=== PATIENT | male | born 1955 | race African-American/Black ===

== ENCOUNTER 2019-03-04 10:16 | Emergency (ER) | payer BC, SELFPAY ==
[2019-03-04] MEDS ORDERED: DIAZEPAM 2 MG TABLET ONE (10:53)
[2019-03-04] MEDS ORDERED: DEXAMETHASONE 10 MG/ML VIAL ONE (10:53)
[2019-03-04] MEDS ORDERED: IBUPROFEN 400 MG TAB ONE (10:53)
[2019-03-04] MEDS ORDERED: IBUPROFEN 200 MG TAB PO ONE (10:54)
--- NOTE | 2019-03-04 11:26 | EDPHYS ---
Physician Documentation [facility] Name: Jimmy Jack Age: 63 yrs Sex: Male : 1955 Arrival Date: 03/04/2019 Time: :19 Bed 17 Private MD: None, None ED Physician James Ba HPI: 03/04 10:45 This 63 yrs old Black Male presents to ER via Ambulatory with complaints of Pain and pm1 Numbness Of Right Arm. 10:45 The patient or guardian complains of pain, that is acute. The complaints affect the pm1 right trapezius and right arm. Context: The problem was sustained at home, resulted from likely for lifting heavy objects. Onset: The symptoms/episode began/occurred yesterday, morning around 0830. Treatment prior to arrival includes: no previous treatment. Modifying factors: The symptoms are alleviated by nothing. the symptoms are aggravated by moving right arm. Associated signs and symptoms: Pertinent negatives: decreased range of motion, deformity, fever, vomiting, weakness. Severity of symptoms: in the emergency department the symptoms have improved. The patient has not experienced similar symptoms in the past. The patient has not recently seen a physician. Historical: - Allergies: 10:26 No Known Allergies; ss - Home Meds: 10:26 None [Active]; ss - PMHx: 10:26 None; ss - PSHx: 10:26 None; ss - Immunization history:: Adult Immunizations up to date. - Social history:: Smoking status: Patient/guardian denies using tobacco. - Ebola Screening: : Patient denies exposure to infectious person Patient denies travel to an Ebola-affected area in the 21 days before illness onset. ROS: 10:44 Constitutional: Negative for fever, chills, and weight loss, Eyes: Negative for injury, pm1 pain, redness, and discharge, ENT: Negative for injury, pain, and discharge. 10:44 Cardiovascular: Negative for chest pain, palpitations, and edema, Respiratory: Negative for shortness of breath, cough, wheezing, and pleuritic chest pain, Abdomen/GI: Negative for abdominal pain, nausea, vomiting, diarrhea, and constipation, Back: Negative for injury and pain, : Negative for injury, bleeding, discharge, and swelling, MS/Extremity: Negative for injury and deformity, Skin: Negative for injury, rash, and discoloration. 10:44 Neck: Positive for tenderness, of the right trapezius, Negative for stiffness, swelling, bony tenderness. 10:44 Neuro: Positive for pain and numbness to right arm, Negative for weakness. Exam: 10:44 Constitutional: This is a well developed, well nourished patient who is awake, alert, pm1 and in no acute distress. Head/Face: Normocephalic, atraumatic. Eyes: Pupils equal round and reactive to light, extra-ocular motions intact. Lids and lashes normal. Conjunctiva and sclera are non-icteric and not injected. Cornea within normal limits. Periorbital areas with no swelling, redness, or edema. ENT: Nares patent. No nasal discharge, no septal abnormalities noted. Tympanic membranes are normal and external auditory canals are clear. Oropharynx with no redness, swelling, or masses, exudates, or evidence of obstruction, uvula midline. Mucous membranes moist. Chest/axilla: Normal chest wall appearance and motion. Nontender with no deformity. No lesions are appreciated. 10:44 Cardiovascular: Regular rate and rhythm with a normal S1 and S2. No gallops, murmurs, or rubs. Normal PMI, no JVD. No pulse deficits. Respiratory: Lungs have equal breath sounds bilaterally, clear to auscultation and percussion. No rales, rhonchi or wheezes noted. No increased work of breathing, no retractions or nasal flaring. Abdomen/GI: Soft, non-tender, with normal bowel sounds. No distension or tympany. No guarding or rebound. No evidence of tenderness throughout. 10:44 Skin: Warm, dry with normal turgor. Normal color with no rashes, no lesions, and no evidence of cellulitis. MS/ Extremity: Pulses equal, no cyanosis. Neurovascular intact. Full, normal range of motion. 10:44 Neck: External neck: tenderness, of the right trapezius, C-spine: vertebral tenderness, is not appreciated. 10:44 Back: normal spinal alignment noted, vertebral tenderness, is not appreciated, muscle spasm, is appreciated in the right trapezius and right scapular area. 10:44 Neuro: Orientation: is normal, Motor: is normal, moves all fours. Vital Signs: 10:26 BP 115 / 77; Pulse 68; Resp 16; Temp 98.3(TE); Pulse Ox 100% on R/A; Weight 65.77 kg; ss Height 5 ft. 10 in. (177.80 cm); Pain 7/10; 10:26 Body Mass Index 20.81 (65.77 kg, 177.80 cm) ss MDM: 10:30 Patient medically screened. pm1 10:44 Data reviewed: vital signs. Data interpreted: Pulse oximetry: on room air is 100 %. pm1 Interpretation: normal. 10:44 ED course: Discussed with the patient that he would need an outpatient MRI to further pm1 diagnosis his condition. Patient without any trauma. 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 Possible cause for right arm pain and numbness. 11:22 Counseling: I had a detailed discussion with the patient and/or guardian regarding: the pm1 historical points, exam findings, and any diagnostic results supporting the discharge/admit diagnosis, the need for outpatient follow up, a family practitioner, a neurosurgeon, Outpatient MRI, to return to the emergency department if symptoms worsen or persist or if there are any questions or concerns that arise at home. Administered Medications: 10:48 Drug: Decadron 10 mg Route: IM; Site: right deltoid; tw2 11:30 Follow up: Response: No adverse reaction tw2 10:48 Drug: Ibuprofen 600 mg Route: PO; tw2 11:30 Follow up: Response: No adverse reaction; Pain is decreased tw2 10:48 Drug: Valium 2 mg Route: PO; tw2 11:30 Follow up: Response: No adverse reaction tw2 Disposition: 16:04 Co-signature as Attending Physician, James Ba MD. rn Disposition: 03/04/19 11:25 Discharged to Home. Impression: Strain of muscle, fascia and tendon at neck level, Strain of muscle and tendon of back wall of thorax. - Condition is Stable. - Discharge Instructions: Cervical Radiculopathy, Muscle Strain. - Prescriptions for Valium 2 mg Oral Tablet - take 1 tablet by ORAL route every 8 hours As needed; 20 tablet. Diclofenac Sodium 75 mg Oral Tablet Sustained Release - take 1 tablet by ORAL route 2 times per day; 30 tablet. Medrol (Kraig) 4 mg Oral Tablets, Dose Pack - take 1 tablet by ORAL route as directed - follow package instructions; 1 packet. - Medication Reconciliation Form, Thank You Letter, Antibiotic Education, Prescription Opioid Use, Work release form form. - Follow up: Emergency Department; When: As needed; Reason: Worsening of condition. Follow up: Private Physician; When: 2 - 3 days; Reason: Recheck today's complaints, Continuance of care, Re-evaluation by your physician. - Problem is new. - Symptoms have improved. Signatures: James Ba MD MD rn Smirch, Shelby, RN RN ss Marinas, Patrick, NP METEOROLOGICAL OBSERVER pm1 Evelyn Rodarte RN RN tw2 Corrections: (The following items were deleted from the chart) 11:55 11:25 03/04/2019 11:25 Discharged to Home. Impression: Strain of muscle, fascia and tw2 tendon at neck level; Strain of muscle and tendon of back wall of thorax. Condition is Stable. Forms are Work release form, Medication Reconciliation Form, Thank You Letter, Antibiotic Education, Prescription Opioid Use. Follow up: Emergency Department; When: As needed; Reason: Worsening of condition. Follow up: Private Physician; When: 2 - 3 days; Reason: Recheck today's complaints, Continuance of care, Re-evaluation by your physician. Problem is new. Symptoms have improved. pm1
--- NOTE | 2019-03-04 11:26 | ER ---
Nurse's Notes [facility] Name: Jimmy Jack Age: 63 yrs Sex: Male : 1955 Arrival Date: 03/04/2019 Time: :19 Bed 17 Private MD: None, None Diagnosis: Strain of muscle, fascia and tendon at neck level;Strain of muscle and tendon of back wall of thorax Presentation: 03/04 10:25 Presenting complaint: Patient states: Pain to R shoulder/ R upper arm that began ss yesterday 30 with intermittent tingling to R arm. Transition of care: patient was not received from another setting of care. Onset of symptoms was March 03, 2019 at 08:30. Risk Assessment: Do you want to hurt yourself or someone else? Patient reports no desire to harm self or others. Initial Sepsis Screen: Does the patient meet any 2 criteria? No. Patient's initial sepsis screen is negative. Does the patient have a suspected source of infection? No. Patient's initial sepsis screen is negative. Care prior to arrival: None. 10:25 Method Of Arrival: Ambulatory ss 10:25 Acuity: NATHAN 3 ss Historical: - Allergies: 10:26 No Known Allergies; ss - Home Meds: 10:26 None [Active]; ss - PMHx: 10:26 None; ss - PSHx: 10:26 None; ss - Immunization history:: Adult Immunizations up to date. - Social history:: Smoking status: Patient/guardian denies using tobacco. - Ebola Screening: : Patient denies exposure to infectious person Patient denies travel to an Ebola-affected area in the 21 days before illness onset. Screenin:32 Abuse screen: Denies threats or abuse. Nutritional screening: No deficits noted. tw2 Tuberculosis screening: No symptoms or risk factors identified. Fall Risk None identified. Assessment: 10:32 General: Appears in no apparent distress. slender, well groomed, Behavior is calm, tw2 cooperative, appropriate for age. Pain: Complains of pain in right arm. Neuro: Level of Consciousness is awake, alert, obeys commands, Oriented to person, place, time, situation. Cardiovascular: Heart tones S1 S2 Patient's skin is warm and dry. Respiratory: Airway is patent Respiratory effort is even, unlabored, Respiratory pattern is regular, symmetrical, Breath sounds are clear bilaterally. GI: No signs and/or symptoms were reported involving the gastrointestinal system. Abdomen is flat. : No signs and/or symptoms were reported regarding the genitourinary system. EENT: No signs and/or symptoms were reported regarding the EENT system. Derm: No signs and/or symptoms reported regarding the dermatologic system. Musculoskeletal: Reports pain in right arm. 11:54 Reassessment: Patient appears in no apparent distress at this time. No changes from tw2 previously documented assessment. Patient and/or family updated on plan of care and expected duration. Pain level reassessed. Patient is alert, oriented x 3, equal unlabored respirations, skin warm/dry/pink. Vital Signs: 10:26 BP 115 / 77; Pulse 68; Resp 16; Temp 98.3(TE); Pulse Ox 100% on R/A; Weight 65.77 kg; ss Height 5 ft. 10 in. (177.80 cm); Pain 7/10; 10:26 Body Mass Index 20.81 (65.77 kg, 177.80 cm) ss ED Course: 10:19 Patient arrived in ED. mr 10:19 None, None is Private Physician. mr 10:26 Triage completed. ss 10:26 Arm band placed on left wrist. ss 10:29 Alexi Wright NP is PHCP. pm1 10:29 James Ba MD is Attending Physician. pm1 10:32 Evelyn Rodarte RN is Primary Nurse. tw2 10:32 Bed in low position. Call light in reach. tw2 11:54 No provider procedures requiring assistance completed. Patient did not have IV access tw2 during this emergency room visit. Administered Medications: 10:48 Drug: Decadron 10 mg Route: IM; Site: right deltoid; tw2 11:30 Follow up: Response: No adverse reaction tw2 10:48 Drug: Ibuprofen 600 mg Route: PO; tw2 11:30 Follow up: Response: No adverse reaction; Pain is decreased tw2 10:48 Drug: Valium 2 mg Route: PO; tw2 11:30 Follow up: Response: No adverse reaction tw2 Outcome: 11:25 Discharge ordered by . pm1 11:54 Discharged to home ambulatory. tw2 11:54 Condition: stable 11:54 Discharge instructions given to patient, Instructed on discharge instructions, follow up and referral plans. no drinking with medication, no driving heavy equipment, medication usage, Demonstrated understanding of instructions, follow-up care, medications, Prescriptions given X 3. 11:55 Patient left the ED. tw2 Signatures: Tawanna Zapata Shelby, RN RN ss Alexi Wright, JAMARCUS RELATIONS MGR pm1 Evelyn Rodarte RN RN tw2
[2019-03-04 15:28] VITALS: BP 115/77; TEMP 98.3; O2SAT 100
== END 2019-03-04 11:55 | disposition home or self-care (01) ==
LOC: ER 10:16
DX: S16.1XXA Strain of muscle, fascia and tendon at neck level, initial encounter (principal); S29.012A Strain of muscle and tendon of back wall of thorax, initial encounter; X50.0XXA Overexertion from strenuous movement or load, initial encounter; Y93.89 Activity, other specified; Y92.009 Unspecified place in unspecified non-institutional (private) residence as the place of occurrence of the external cause
CPT/HCPCS: 96372; 99283; J1100

== ENCOUNTER 2022-05-02 11:26 | Emergency (ER) | payer MEDICARE ==
[2022-05-02 12:21] LABS: Hematocrit 38.3 % (39.6-49.0); Lymphocytes % 26.9 % (15.3-44.8); MCV 89.7 fL (80-100); RBC Red Blood Cell Count 4.27 M/uL (4.33-5.43)
[2022-05-02 12:25] LABS: Potassium 3.5 mmol/L (3.5-5.1); Troponin High Sensitivity 4.3 pg/mL (<58.9)
--- NOTE | 2022-05-02 12:58 | RAD REPORT ---
EXAM DESCRIPTION: RAD - Chest Single View - 05/02/2022 12:47 pm CLINICAL HISTORY: CHEST PAIN COMPARISON: Chest Single View dated 08/03/2021; Chest Pa And Lat (2 Views) dated 05/03/2021; Chest Pa And Lat (2 Views) dated 07/14/2020; CHEST SINGLE VIEW dated 10/28/2014; Lung Cancer Screening CT W/O d ated 04/11/2022 FINDINGS: Lines: None. Lungs: Advanced emphysema. Scarring in the right lung apex. Pleural: No significant pleural effusions or pneumothorax. Cardiac: The heart size is within normal limits. Bones: No acute fractures. Other: IMPRESSION: Advanced emphysema without superimposed acute process.
--- NOTE | 2022-05-02 13:50 | EDPHYS ---
Physician Documentation [facility] Name: Jimmy Jack Age: 66 yrs Sex: Male : 1955 Arrival Date: 05/02/2022 Time: 11:37 Bed 4 Private MD: ED Physician Derik Solitario HPI: 05/02 13:49 This 66 yrs old Black Male presents to ER via EMS with complaints of chest pain. ms3 13:49 The patient or guardian reports chest pain that is located primarily in the left chest. ms3 13:49 Onset: 8 hour(s) ago. The pain does not radiate. Associated signs and symptoms: ms3 Pertinent negatives: abdominal pain, diaphoresis, nausea, near syncope, syncope, vomiting. The chest pain is described as aching. Duration: The patient or guardian reports a single episode. Modifying factors: The symptoms are alleviated by nothing. the symptoms are aggravated by nothing. EMS care prior to arrival includes: aspirin, nitroglycerin. 13:49 The chest pain is described as CP resolved in the ED. ms3 Historical: - PMHx: 14:16 COPD; GERD; Kidney stone; kr3 - Immunization history:: Adult Immunizations up to date, Client reports receiving the 2nd dose of the Covid vaccine. - Social history:: Smoking status: Patient reports the use of cigarette tobacco products, smokes one-half pack cigarettes per day. ROS: 13:49 Constitutional: Negative for fever, and chills. Neck: Negative for injury, pain, and ms3 swelling, Cardiovascular: Negative for chest pain, and palpitations. Respiratory: Negative for shortness of breath, cough, wheezing, and pleuritic chest pain, Abdomen/GI: Negative for abdominal pain, nausea, vomiting, diarrhea, and constipation, MS/Extremity: Negative for injury and deformity, Skin: Negative for injury, rash, and discoloration, Neuro: Negative for headache, weakness, numbness, tingling. Psych: Negative for depression, anxiety, suicide ideation, homicidal ideation, and hallucinations. 13:49 All other systems are negative. ms3 Exam: 11:36 ECG was reviewed by the Attending Physician. ms3 13:49 Constitutional: This is a well developed, well nourished patient who is awake, alert, ms3 and in no acute distress. Head/Face: Normocephalic, atraumatic. Eyes: Pupils equal round and reactive to light, extra-ocular motions intact. Lids and lashes normal. Conjunctiva and sclera are non-icteric and not injected. Periorbital areas with no swelling, redness, or edema. Neck: Trachea midline, no cervical lymphadenopathy. Supple, full range of motion without nuchal rigidity, or vertebral point tenderness. No Meningismus. Chest/axilla: Normal chest wall appearance and motion. Nontender with no deformity. Cardiovascular: Regular rate and rhythm with a normal S1 and S2. No gallops, murmurs, or rubs. Normal PMI, no JVD. No pulse deficits. Respiratory: Lungs have equal breath sounds bilaterally, clear to auscultation and percussion. No rales, rhonchi or wheezes noted. No increased work of breathing, no retractions or nasal flaring. Abdomen/GI: Soft, non-tender, with normal bowel sounds. No distension or tympany. No guarding or rebound. No evidence of tenderness throughout. Skin: Warm, dry with normal turgor. Normal color with no rashes, no lesions, and no evidence of cellulitis. Psych: Awake, alert, with orientation to person, place and time. Behavior, mood, and affect are within normal limits. Vital Signs: 11:30 BP 119 / 73; Pulse 75; Resp 16; Temp 98.2; Pulse Ox 99% on R/A; kr3 14:00 BP 127 / 82; Pulse 94; Resp 16; Pulse Ox 98% on R/A; kr3 MDM: 11:45 Patient medically screened. ms3 13:49 Differential diagnosis: abnormal EKG, acute myocardial infarction, coronary artery ms3 disease chest wall pain, pneumonia, pneumothorax. HEART Score: History: Slightly Suspicious (0), ECG: Normal (0), Age: > or = 65 years (2), Risk Factors: No Risk Factors Known (0), Troponin: < or = 1 x Normal Limit (0), Total Score = 2. The patient was not given aspirin in the Emergency Department. Administered by EMS. Data reviewed: vital signs, nurses notes, lab test result(s), EKG, radiologic studies, and as a result, I will discharge patient. Data interpreted: alarm security or surveillance monitor: rate is 85 beats/min, rhythm is normal sinus rhythm, with no ectopy, Interpretation: normal rate, normal rhythm, Pulse oximetry: on room air is 98 %. Interpretation: normal. Counseling: I had a detailed discussion with the patient and/or guardian regarding: the historical points, exam findings, and any diagnostic results supporting the discharge/admit diagnosis, lab results, radiology results, the need for outpatient follow up, to return to the emergency department if symptoms worsen or persist or if there are any questions or concerns that arise at home. Refusal of service: The patient/guardian displays adequate decision making capability and despite a detailed discussion of alternatives, benefits, risks, and consequences refuses: Admission to the hospital for further work-up and treatment. ED course: Patient is improved, in NAD, non-toxic appearing, ambulatory in ED, speaking full sentences.. 05/02 11:44 Order name: Basic Metabolic Panel; Complete Time: 13:10 ms3 05/02 11:44 Order name: CBC with Diff; Complete Time: 13:10 ms3 05/02 11:44 Order name: Troponin HS; Complete Time: 13:10 ms3 05/02 11:44 Order name: XRAY Chest (1 view); Complete Time: 13:10 ms3 05/02 11:44 Order name: EKG; Complete Time: 11:44 ms3 05/02 11:44 Order name: Cardiac monitoring; Complete Time: 11:50 ms3 05/02 11:44 Order name: EKG - Nurse/Tech; Complete Time: 11:50 ms3 05/02 11:44 Order name: IV Saline Lock; Complete Time: 11:50 ms3 05/02 11:44 Order name: Labs collected and sent; Complete Time: 11:50 ms3 05/02 11:44 Order name: O2 Per Protocol; Complete Time: 11:50 ms3 05/02 11:44 Order name: O2 Sat Monitoring; Complete Time: 11:50 ms3 EC:36 Rate is 74 beats/min. Rhythm is regular. QRS [place] is Normal. Right axis deviation ms3 noted. UT interval is normal. Clinical impression: NSR w/ Non-specific ST/T Changes. Interpreted by me. Reviewed by me. Administered Medications: No medications were administered Disposition Summary: 05/02/22 13:49 Discharge Ordered Location: Home ms3 Condition: Stable ms3 Diagnosis - Chest pain, unspecified ms3 - Anemia, unspecified ms3 - COPD/ Chronic obstructive pulmonary disease, unspecified ms3 Followup: ms3 - With: Scottie Sifuentes MD - When: 1 - 2 days - Reason: Re-evaluation by your physician Discharge Instructions: - Discharge Summary Sheet ms3 - Nonspecific Chest Pain, Adult ms3 Forms: - Medication Reconciliation Form ms3 - Thank You Letter ms3 - Antibiotic Education ms3 - Prescription Opioid Use ms3 Signatures: Dispatcher [employer] EDDerik Torres DO DO ms3 Aida Arias, RN RN kr3
--- NOTE | 2022-05-02 13:50 | ER ---
Nurse's Notes [facility] Name: Jimmy Jack Age: 66 yrs Sex: Male : 1955 Arrival Date: 05/02/2022 Time: 11:37 Bed 4 Private MD: Diagnosis: Chest pain, unspecified;Anemia, unspecified;COPD/ Chronic obstructive pulmonary disease, unspecified Presentation: 05/02 11:30 Chief complaint: EMS states: chest discomfort 04/22, 324 asprin, 1 nitro, hx of COPD. kr3 11:30 Coronavirus screen: Vaccine status: Patient reports receiving the 2nd dose of the covid kr3 vaccine. Client denies travel out of the [place] in the last 14 days. Ebola Screen: Patient denies travel to an Ebola-affected area in the 21 days before illness onset. Initial Sepsis Screen: Does the patient meet any 2 criteria? No. Patient's initial sepsis screen is negative. Does the patient have a suspected source of infection? No. Patient's initial sepsis screen is negative. Risk Assessment: Do you want to hurt yourself or someone else? Patient reports no desire to harm self or others. Onset of symptoms was May 02, 2022. 11:30 Method Of Arrival: EMS: [facility] kr3 11:30 Acuity: NATHAN 3 kr3 Triage Assessment: 11:44 General: Appears in no apparent distress. comfortable, Behavior is calm, cooperative, kr3 appropriate for age. Pain: Denies pain. 11:44 Cardiovascular:. kr3 11:44 Pain: Denies pain. kr3 Historical: - PMHx: 14:16 COPD; GERD; Kidney stone; kr3 - Immunization history:: Adult Immunizations up to date, Client reports receiving the 2nd dose of the Covid vaccine. - Social history:: Smoking status: Patient reports the use of cigarette tobacco products, smokes one-half pack cigarettes per day. Screenin:14 Abuse screen: Denies threats or abuse. Nutritional screening: No deficits noted. kr3 Tuberculosis screening: No symptoms or risk factors identified. Fall Risk IV access (20 points). Total Santacruz Fall Scale indicates No Risk (0-24 pts). Assessment: 12:45 Reassessment: No changes from previously documented assessment. Patient and/or family ll1 updated on plan of care and expected duration. Pain level reassessed. Patient is alert, oriented x 3, equal unlabored respirations, skin warm/dry/pink. 13:45 Reassessment: No changes from previously documented assessment. Patient and/or family kr3 updated on plan of care and expected duration. Pain level reassessed. Vital Signs: 11:30 BP 119 / 73; Pulse 75; Resp 16; Temp 98.2; Pulse Ox 99% on R/A; kr3 14:00 BP 127 / 82; Pulse 94; Resp 16; Pulse Ox 98% on R/A; kr3 ED Course: 11:37 Patient arrived in ED. jl7 11:37 Derik Solitario DO is Attending Physician. ms3 11:37 EKG done, by ED staff, reviewed by Derik Solitario DO. mb7 11:37 Patient has correct armband on for positive identification. Bed in low position. Call mb7 light in reach. Side rails up X 1. Door closed. Noise minimized. Warm blanket given. 11:37 Patient placed in an exam room, on a stretcher. kr3 11:39 Aida Arias, FRANCESCA is Primary Nurse. kr3 11:40 Maintain EMS IV. Dressing intact. Good blood return noted. Site clean \T\ dry. Gauge \T\ kr 3 site: 20 G RFA. 11:43 Triage completed. kr3 12:45 XRAY Chest (1 view) In Process Unspecified. EDMS 13:49 Scottie Sifuentes MD is Referral Physician. ms3 14:14 No provider procedures requiring assistance completed. Inserted IV discontinued, kr3 intact, bleeding controlled, No redness/swelling at site. Pressure dressing applied. Administered Medications: No medications were administered Medication: 14:17 VIS not applicable for this client. kr3 Outcome: 13:49 Discharge ordered by . ms3 14:15 Discharged to home ambulatory. kr3 14:15 Condition: stable 14:15 Discharge instructions given to patient, Instructed on discharge instructions, follow up and referral plans. Demonstrated understanding of instructions, follow-up care, medications. 14:19 Patient left the ED. kr3 Signatures: Dispatcher [employer] EDMS Raul Dunn RN RN jl7 Frandy Jones RN RN ll1 Derik Solitario DO DO ms3 Tawanna Martinez mb7 Aida Arias RN RN kr3 Corrections: (The following items were deleted from the chart) 11:46 Pain: kr3 kr3
[2022-05-02 15:05] VITALS: TEMP 98.2
[2022-05-02 15:07] VITALS: BP 127/82; O2SAT 98
--- NOTE | 2022-05-03 08:50 | EKG ---
Test Date: 2022-05-02 Test Time: 11:36:26 Development Mechanic: MB MEASUREMENT RESULTS: Intervals: Rate: 74 OK: 140 QRSD: 68 QT: 352 QTc: 390 [place]: P: 90 OK: 140 QRS: 97 T: 85 INTERPRETIVE STATEMENTS: Suspect arm lead reversal, interpretation assumes no reversal Sinus rhythm with fusion complexes Rightward axis Pulmonary disease pattern Septal infarct, age undetermined Abnormal ECG Compared to ECG 08/03/2021 06:11:30 Fusion complex(es) now present Right-axis deviation now present Myocardial infarct finding still present Electronically Signed On 05-03-22 08:47:06 CDT by Leland Pierre
--- OUTSIDE RECORDS SUMMARY | 2022-05-03 15:32 | XMS REPORT | Continuity of Care Document ---
:1955 Author Organization [facility] t Address [address] [place] [address] Care Team Providers Name Role Phone Unavailable Unavailable Unavailable Payers Payer Name Policy Type Policy Number Effective Date Expiration Date [facility] [id number] 2021 (MEDICARE 00:00:00 REPLACEMENT HMO) Problems This patient has no known problems. Allergies, Adverse Reactions, Alerts This patient has no known allergies or adverse reactions. Medications This patient has no known medications. Procedures This patient has no known procedures. Encounters Start End Encounter Admission Attending Care Care Encounter Source Date/Time Date/Time Type Type Clinicians Facility Department ID 2022-04-27 2022-04-27 [facility] [id number] [facility] 06:09:00 06:09:00 [id number] 2021-08-16 2021-08-16 [facility] [id number] [facility] 11:01:00 11:01:00 1103 [facility] Results This patient has no known results.
== END 2022-05-02 14:19 | disposition home or self-care (01) ==
LOC: ER 11:26
DX: R07.89 Other chest pain (principal); D64.9 Anemia, unspecified; J44.9 Chronic obstructive pulmonary disease, unspecified; F17.210 Nicotine dependence, cigarettes, uncomplicated
CPT/HCPCS: 36415; 71045; 80048; 84484; 85025; 93005

== ENCOUNTER 2022-10-20 08:58 | Inpatient (IN) | payer MEDICARE ==
--- OUTSIDE RECORDS SUMMARY | 2022-10-20 09:01 | XMS REPORT | Continuity of Care Document ---
:1955 Author Organization [facility] t Address [address] [place] [address] Care Team Providers Name Role Phone Hernandez Damian Attending Clinician Unavailable Coral Landers Attending Clinician Munira Attending Clinician Unavailable Munira Admitting Clinician Unavailable Payers Payer Name Policy Type Policy Number Effective Date Expiration Date [facility] [employer] [id number] 2021 (MEDICARE 00:00:00 REPLACEMENT HMO) Problems Condition Condition Condition Status Onset Resolution Last Treating Co mments Source Name Details Category Date Date Treatment Clinician Date [id number] Prostate Problem Com sat [address] nodule [facility] [id number] BPH loc w Problem Com mon urin [facility] obs/LUTS [facility] [id number] Lesion of Problem Com mon bladder [facility] [id number] BPH loc Problem Commo n w/o ur [facility] obs/LUTS [facility] Testicular Testicular Problem C ommon hypofuncti hypofuncti Sp robert on on - [facility] Bladder Bladder Problem Common mass mass [facility] [id number] Family Problem Common history of [facility] prostate - [facility] cancer in [facility] Allergies, Adverse Reactions, Alerts This patient has no known allergies or adverse reactions. Social History Social Habit Start Date Stop Date Quantity Comments Source History of Tobacco Current Smoker Co mmon [facility] Use [facility] Sex Assigned At Com mon [facility] Smoking Status Start Date Stop Date Source Current Smoker 2022-09-05 00:00:00 Common Sp[facility] t - [facility] Medications Ordered Filled Start Stop Current Ordering Indication Dosage Frequency Signature Comments Components Source Medication Medication Date Date Medication? Clinician (SIG) Name Name Flomax 0.4 Flomax 0.4 2021-10- No 1{capsu QD Flomax 0.4 MG MG 11-05 le} MG 00:00: 00:00 00 :00 Flomax 0.4 Flomax 0.4 2021-10- No 1{capsu QD Flomax 0.4 MG MG 11-05 le} MG 00:00: 00:00 00 :00 ProAir HFA ProAir HFA No 1{puff_ 6xD ProAir HFA 108 (90 108 (90 as_need 108 (90 Base) Base) ed} Base) MCG/ACT MCG/ACT MCG/ACT predniSONE predniSONE No 1{table QD predniSONE 10 MG 10 MG t} 10 MG Omeprazole Omeprazole No 1{capsu BID Omeprazole 40 MG 40 MG le} 40 MG Methocarbam Methocarbam No 1.5{tab 6xD Methocarba ol 500 MG ol 500 MG lets} mol 500 MG tramadol tramadol No tramadol Trelegy Trelegy No 1{puff} QD Trelegy Ellipta Ellipta Ellipta 100-62.5-25 100-62.5-25 100-62.5-2 MCG/INH MCG/INH 5 MCG/INH ProAir HFA ProAir HFA No 1{puff_ 6xD ProAir HFA 108 (90 108 (90 as_need 108 (90 Base) Base) ed} Base) MCG/ACT MCG/ACT MCG/ACT predniSONE predniSONE No 1{table QD predniSONE 10 MG 10 MG t} 10 MG Omeprazole Omeprazole No 1{capsu BID Omeprazole 40 MG 40 MG le} 40 MG Methocarbam Methocarbam No 1.5{tab 6xD Methocarba ol 500 MG ol 500 MG lets} mol 500 MG tramadol tramadol No tramadol Trelegy Trelegy No 1{puff} QD Trelegy Ellipta Ellipta Ellipta 100-62.5-25 100-62.5-25 100-62.5-2 MCG/INH MCG/INH 5 MCG/INH Vital Signs Vital Name Observation Time Observation Value Comments Source height 2022-09-05 14:30:00 70 [in_i] [facility] weight 2022-09-05 14:30:00 123.6 [lb_av] [facility] temperature 2022-09-05 14:30:00 98 [degF] [facility] bmi 2022-09-05 14:30:00 17.73 kg/m2 [facility] oximetry 2022-09-05 14:30:00 99 % [facility] respiratory rate 2022-09-05 14:30:00 18 /min Comm on [facility] blood pressure 2022-09-05 14:30:00 143 mm[Hg] [facility] - systolic [facility] blood pressure 2022-09-05 14:30:00 76 mm[Hg] [facility] diastolic [facility] Procedures This patient has no known procedures. Encounters Start End Encounter Admission Attending Care Care Encounter Source Date/Time Date/Time Type Type Clinicians Facility Department ID 2022-09-05 Outpatient Nati, [facility]LMLC [facility] [id number] Common 14:14:02 Hernandez [id number] [facility] 2022-09-05 2022-09-05 (TEL) [facility]LMLC ST[facility]C [id number] Co mmon 00:00:00 00:00:00 [facility] 2022-09-05 2022-09-05 OFFICE STLMLC STLMLC [id number] Co mmon 00:00:00 00:00:00 VISIT EST Spir it PT LEVEL 3 [facility] 2022-07-27 2022-07-27 RAMU Moncada [id number] CLAC XFAZJJ [facility] 15:30:00 16:30:00 Anshul [id number] [facility] [id number] 2022-07-26 2022-07-26 Outpatient Anshul_ [facility] [id number] [facility] 00:00:00 00:00:00 K 1013 [facility] 2022-04-27 2022-04-27 Outpatient [facility] [id number] [facility] 06:09:00 06:09:00 0715 [facility] 2021-08-16 2021-08-16 Outpatient [facility] [id number] [facility] 11:01:00 11:01:00 [facility] Results This patient has no known results.
[2022-10-20] MEDS ORDERED: LEVALBUTEROL 1.25 MG/3 ML NEB ONE (09:31)
[2022-10-20] MEDS ORDERED: METHYLPREDNISOLONE 125 MG INJ ONE (09:31)
[2022-10-20] MEDS ORDERED: MAGNESIUM SULFATE 1 gm IVPB 1 GM/100 ML BAG IV ONE (09:32)
[2022-10-20] MEDS ORDERED: Ringers Lactate 1,000 ML IV ONE (09:33)
[2022-10-20 09:38] LABS: Absolute Lymphocytes (CBC) 0.7 K/uL (0.7-4.9); Hematocrit 48.8 % (39.6-49.0); Lymphocytes % 8.3 % (15.3-44.8); MCV 88.1 fL (80-100); MPV 7.5 fL (7.6-11.3); RBC Red Blood Cell Count 5.54 M/uL (4.33-5.43)
[2022-10-20] MEDS ORDERED: MORPHINE 2 MG/ML SYR ONE (09:57)
[2022-10-20] MEDS ORDERED: ONDANSETRON 4 MG/2 ML VIAL ONE (09:58)
[2022-10-20 10:04] LABS: Troponin High Sensitivity 19.9 pg/mL (<58.9)
[2022-10-20 10:06] LABS: Potassium 4.5 mmol/L (3.5-5.1)
[2022-10-20 10:34] LABS: Protime INR 1.23
--- NOTE | 2022-10-20 10:36 | RAD REPORT ---
EXAM DESCRIPTION: RAD - Chest Single View - 10/20/2022 10:09 am CLINICAL HISTORY: SOB COMPARISON: 05/02/2022, 08/03/2021 FINDINGS: Lines: None. Lungs: Advanced emphysema. No consolidative airspace disease or edema identified. Pleural: No significant pleural effusions or pneumothorax. Cardiac: The heart size is within normal limits. Mediastinum: Within normal limits. Bones: No acute fractures. Other: None IMPRESSION: Emphysema without superimposed acute process identified.
[2022-10-20 10:54] LABS: SARS-COV-2 RT PCR NEGATIVE (NEGATIVE)
--- NOTE | 2022-10-20 10:54 | RAD REPORT ---
EXAM DESCRIPTION: CT - Chest For Pe Angio - 10/20/2022 10:45 am CLINICAL HISTORY: sob COMPARISON: Chest CT 04/11/2022, chest radiograph 10/20/2021 TECHNIQUE: Dynamically enhanced axial 3 mm thick images of the chest were obtained during administra tion of <100> mL Isovue 370 IV contrast. Coronal and oblique reconstruction images were generated and reviewed. Exam utilizes a protocol for optimal evaluation of pulmonary arterial tree. Maximum intensity projections 3D imaging was utilized All CT scans are performed using dose optimization technique as appropriate and may include automated exposure control or mA/KV adjustment according to patient size. FINDINGS: Chest Wall: No suspicious thyroid nodules or pathologic lymphadenopathy. Lungs: No acute abnormality. The lung apices were not included in the field of view. Advanced emphyse ma. Pleura: No significant effusions or pneumothorax. Mediastinum/alisia: No pathologic lymphadenopathy. Pulmonary arteries/Aorta: No filling defect identified. No aortic aneurysm. Heart: No significant pericardial effusion. Normal heart size. Upper abdomen: No acute abnormality. Bones: No acute abnormality. IMPRESSION: Negative for pulmonary embolism. Advanced emphysema.
--- NOTE | 2022-10-20 10:56 | RAD REPORT ---
EXAM DESCRIPTION: CTAbdomen Pelvis W Contrast - 10/20/2022 10:46 am CLINICAL HISTORY: rectal bleeding COMPARISON: Abdomen Pelvis W Contrast dated 05/12/2021; Abdomen Pelvis W Contrast dated 0 TECHNIQUE: CT of the abdomen and pelvis was performed. All CT scans are performed using dose optimization technique as appropriate and may include automated exposure control or mA/KV adjustment according to patient size. FINDINGS: Lower chest: Advanced emphysema in the lung bases. Liver: Mild intrahepatic biliary duct dilatation. No suspicious lesions identified. Biliary: No biliary ductal dilatation. Stomach: No significant focal abnormality. Duodenum: No significant focal abnormality. Pancreas: No significant abnormality. Spleen: No significant abnormality. Adrenal: No suspicious lesions. Kidney/ureter: No hydronephrosis. No renal calculi. Too small to characterize and/or benign appearing renal lesions are noted. Retroperitoneum: No retroperitoneal adenopathy. Vascular: No aneurysm. Atherosclerosis. Bowel: No significant focal abnormality. Peritoneum: No ascites or free air. Bladder: Grossly unremarkable. Reproductive: No adnexal masses. Bones: No acute fracture. Other: n/a IMPRESSION: No acute intra-abdominal or pelvic finding.
--- NOTE | 2022-10-20 11:39 | ER ---
Nurse's Notes [facility] Name: Jimmy Jack Age: 67 yrs Sex: Male : 1955 Arrival Date: 10/20/2022 Time: 08:59 Bed 15 Private MD: SAULO DOHERTY Diagnosis: COPD/ Chronic obstructive pulmonary disease with (acute) exacerbation Presentation: 10/20 09:10 Chief complaint: Patient states: In lobby Pt appears in tripod position with pursed vg1 lips with labored breathing, pt taken back to exam room, unable to get an O2 reading, placed pt on non rebreather, provider at bedside; pt stated Difficulty breathing x 3 days with back and chest pain; stated used nebulized twice last night "but it did not help" Also stated noticed blood in stool this morning. 09:10 Coronavirus screen: Vaccine status: Patient reports receiving the 2nd dose of the covid vg1 vaccine. Client denies travel out of the [place] in the last 14 days. Client presents with at least one sign or symptom that may indicate coronavirus-19. Standard/surgical mask placed on the client. Ebola Screen: Patient negative for fever greater than or equal to 101.5 degrees Fahrenheit, and additional compatible Ebola Virus Disease symptoms. Initial Sepsis Screen: Does the patient meet any 2 criteria? RR > 20 per min. HR > 90 bpm. Yes Does the patient have a suspected source of infection? No. Patient's initial sepsis screen is negative. Risk Assessment: Do you want to hurt yourself or someone else? Patient reports no desire to harm self or others. Onset of symptoms was October 17, 2022. 09:10 Method Of Arrival: Wheelchair vg1 09:10 Acuity: NATHAN 2 vg1 Triage Assessment: 09:10 General: Appears uncomfortable, Behavior is cooperative. Pain: Complains of pain in vg1 back and chest Pain currently is 9 out of 10 on a pain scale. Pain began 2-3 days ago. Respiratory: Reports shortness of breath at rest on exertion cough that is labored breathing Airway is patent Respiratory effort is even, labored, pursed lip, using tripod position, Respiratory pattern is tachypnea Onset: The symptoms/episode began/occurred x 3 days, the patient has moderate shortness of breath. 09:10 GI: Reports rectal bleeding. vg1 Historical: - Allergies: 09:25 No Known Allergies; vg1 - Home Meds: 09:25 Albuterol Inhl [Active]; vg1 - PMHx: 09:25 COPD; GERD; Kidney stone; vg1 - Immunization history:: Client reports receiving the 2nd dose of the Covid vaccine. - Social history:: Smoking status: Patient reports the use of cigarette tobacco products, smokes one pack cigarettes per day. Screenin:28 [facility] ED Fall Risk Assessment (Adult) History of falling in the last 3 months, vg1 including since admission No falls in past 3 months (0 pts) Confusion or Disorientation No (0 pts) Intoxicated or Sedated No (0 pts) Impaired Gait No (0 pts) Mobility Assist Device Used No (0 pt) Altered Elimination No (0 pt) Score/Fall Risk Level 0 - 2 = Low Risk Oriented to surroundings, Maintained a safe environment, Educated pt \\T\\ family on fall prevention, incl call for assistance when getting out of bed, Assessed \\T\\ reinforced patient's understanding of fall precautions. Abuse screen: Denies injuries from another. Nutritional screening: On. Tuberculosis screening: Assessment: 09:10 General: SEE TRIAGE NOTE. bp 10:16 Reassessment: Patient states symptoms have improved. Cardiovascular: Rhythm is sinus bp tachycardia. Respiratory: Airway is patent Respiratory effort is labored, Respiratory pattern is tachypnea Breath sounds are diminished bilaterally. 11:04 Reassessment: PT RETURNED FROM CT. bp 13:00 Reassessment: HOSPITALIST AT B/S. PT ON 4LNC Patient states symptoms have improved. bp 15:00 Reassessment: ADMIT COMPLETE, REPORT TO MARQUIS MA FOR RM 205. bp Vital Signs: 09:10 BP 138 / 82; Pulse 132; Resp 28; Temp 100.2; Pulse Ox 98% on Non-rebreather mask; vg1 Weight 63.5 kg; Height 5 ft. 10 in. (177.80 cm); Pain 9/10; 10:16 BP 133 / 75; Pulse 122; Resp 22; Pulse Ox 99% ; bp 11:04 BP 141 / 76; Pulse 113; Resp 34; Temp 99.1; Pulse Ox 100% ; bp 12:00 BP 114 / 69; Pulse 92; Resp 20; Pulse Ox 97% on 4 lpm NC; bp 13:00 BP 142 / 82; Pulse 98; Resp 17; Pulse Ox 98% ; bp 14:00 BP 128 / 76; Pulse 89; Resp 15; Pulse Ox 97% ; bp 09:10 Body Mass Index 20.09 (63.50 kg, 177.80 cm) vg1 ED Course: 08:59 Patient arrived in ED. am2 08:59 SAULO DOHERTY is Private Physician. am2 09:00 [facility]ime Fraser [facility] 09:00 James Ba MD is Attending Physician. [facility] 09:14 Oscar Diaz, FRANCESCA is Primary Nurse. bp 09:25 Triage completed. vg1 09:27 Arm band placed on. vg1 09:30 Inserted saline lock: 22 gauge in right forearm, using aseptic technique. Blood bp collected. 09:33 Patient has correct armband on for positive identification. Placed in gown. Bed in low mm9 position. Call light in reach. Side rails up X 1. Adult w/ patient. quality assurance monitor final on. Pulse ox on. NIBP on. 09:33 COVID-19/FLU A+B Sent. mm9 09:33 Initial lab(s) drawn, by ED staff, sent to lab. EKG done, by ED staff, reviewed by mm9 James Ba MD COVID swab sent to lab. Flu and/or RSV swab sent to lab. 09:40 Missed attempt(s): 22 gauge in left forearm. vg1 10:11 XRAY Chest (1 view) In Process Unspecified. EDMS 10:47 CT Chest For PE Angio In Process Unspecified. EDMS 10:48 CT Abd/Pelvis - IV Contrast Only In Process Unspecified. 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 GUIAC POSITIVE, BUT NO MELENA. bp 11:39 Bryan Glaser MD is Hospitalizing Provider. [facility] Administered Medications: 09:30 Drug: SOLU-Medrol (methylPrednisoLONE) 125 mg Route: IVP; Site: right forearm; bp 09:30 Drug: Magnesium Sulfate 1 grams Route: IVPB; Infused Over: 1 hrs; Site: right forearm; bp 09:30 Drug: Xopenex (levalbuterol) (3) 1.25 mg Route: Inhalation; bp 09:30 Drug: Lactated Ringers Solution 1000 ml Route: IV; Rate: 1000 bolus; Site: right bp forearm; 10:05 Drug: morphine 2 mg Route: IVP; Infused Over: 4 mins; Site: right forearm; bp 10:05 Drug: Zofran (Ondansetron) 4 mg Route: IVP; Site: right forearm; bp Medication: 09:28 VIS not applicable for this client. vg1 Outcome: 11:39 Decision to Hospitalize by Provider. [facility] 16:23 Patient left the ED. bp Signatures: Dispatcher [employer] EDMS Maxime Fraser PA PA jmm Moreno, Amanda am2 Oscar Diaz, RN RN bp Tatianna Holder RN RN vg1 Sharon Acosta mm9 Corrections: (The following items were deleted from the chart) 09: 09:10 Chief complaint: Patient states: In lobby Pt appears in tripod position with vg1 pursed lips with labored breathing, pt taken back to exam room, unable to get an O2 reading, placed pt on non rebreather, provider at bedside; pt stated Difficulty breathing x 3 days with back and chest pain vg1 09:27 09:10 Chief complaint: Patient states: In lobby Pt appears in tripod position with vg1 pursed lips with labored breathing, pt taken back to exam room, unable to get an O2 reading, placed pt on non rebreather, provider at bedside; pt stated Difficulty breathing x 3 days with back and chest pain; stated used nebulized twice last night "but it did not help" vg1
--- NOTE | 2022-10-20 11:39 | EDPHYS ---
Physician Documentation [facility] Name: Jimmy Jack Age: 67 yrs Sex: Male : 1955 Arrival Date: 10/20/2022 Time: 08:59 Bed 15 Private MD: SAULO DOHERTY ED Physician James Ba HPI: 10/20 09:15 This 67 yrs old Black Male presents to ER via Wheelchair with complaints of Breathing jmm Difficulty, Rectal Bleeding. 09:15 The patient has shortness of breath at rest. Onset: The symptoms/episode began/occurred jmm gradually, 3 day(s) ago. Duration: The symptoms are continuous. The patient's shortness of breath is aggravated by nothing, is alleviated by nebulizer treatment. Associated signs and symptoms: Pertinent positives: Back pain. This is a 67-year-old male with history of COPD, GERD the presents emerged part with complaints of shortness of breath beginning approximately 3 days ago which he states is consistent with his COPD. Patient states that he also noticed a bright red bloody bowel movement this morning, denies abdominal pain.. Historical: - Allergies: 09:25 No Known Allergies; vg1 - Home Meds: 09:25 Albuterol Inhl [Active]; vg1 - PMHx: 09:25 COPD; GERD; Kidney stone; vg1 - Immunization history:: Client reports receiving the 2nd dose of the Covid vaccine. - Social history:: Smoking status: Patient reports the use of cigarette tobacco products, smokes one pack cigarettes per day. ROS: 09:15 Constitutional: Negative for fever, chills, and weight loss, Cardiovascular: Negative jmm for chest pain, palpitations, and edema. 09:15 Respiratory: Positive for cough, shortness of breath. 09:15 Abdomen/GI: Positive for rectal bleeding. 09:15 All other systems are negative. Exam: 09:15 Constitutional: This is a well developed, well nourished patient who is awake, alert, jmm and in no acute distress. Head/Face: atraumatic. Eyes: EOMI, no conjunctival erythema appreciated ENT: Moist Mucus Membranes Neck: Trachea midline, Supple Chest/axilla: Normal chest wall appearance and motion. 09:15 Back: Normal ROM Skin: General appearance color normal MS/ Extremity: Moves all extremities, no obvious deformities appreciated, no edema noted to the lower extremities Neuro: Awake and alert Psych: Behavior is normal, Mood is normal, Patient is cooperative and pleasant 09:15 Cardiovascular: Rate: tachycardic, Rhythm: regular. 09:15 Respiratory: moderate respiratory distress is noted, Respirations: labored breathing, that is moderate, Breath sounds: wheezing: that is mild, is scattered, is heard diffusely. 10:39 ECG was reviewed by the Attending Physician. [facility] Vital Signs: 09:10 BP 138 / 82; Pulse 132; Resp 28; Temp 100.2; Pulse Ox 98% on Non-rebreather mask; vg1 Weight 63.5 kg; Height 5 ft. 10 in. (177.80 cm); Pain 9/10; 10:16 BP 133 / 75; Pulse 122; Resp 22; Pulse Ox 99% ; bp 11:04 BP 141 / 76; Pulse 113; Resp 34; Temp 99.1; Pulse Ox 100% ; bp 12:00 BP 114 / 69; Pulse 92; Resp 20; Pulse Ox 97% on 4 lpm NC; bp 13:00 BP 142 / 82; Pulse 98; Resp 17; Pulse Ox 98% ; bp 14:00 BP 128 / 76; Pulse 89; Resp 15; Pulse Ox 97% ; bp 09:10 Body Mass Index 20.09 (63.50 kg, 177.80 cm) vg1 MDM: 09:15 Patient medically screened. [facility] 11:37 Data reviewed: vital signs, nurses notes. [facility] 11:38 ED course: Patient symptoms have improved. Patient still requires O2 nasal cannula. [facility] Will admit for COPD exacerbation. I do not currently have a source for infection. Blood cultures were drawn. Patient currently does not meet criteria for sepsis.. 10/20 09:16 Order name: Basic Metabolic Panel; Complete Time: 10:06 [facility] 10/20 09:16 Order name: CBC with Diff; Complete Time: 09:43 [facility] 10/20 09:16 Order name: Troponin HS; Complete Time: 10:06 [facility] 10/20 09:16 Order name: COVID-19/FLU A+B; Complete Time: 10:54 [facility] 10/20 09:24 Order name: Lactate w/ 2H reflex if indic.; Complete Time: 10:25 [facility] 10/20 09:24 Order name: Blood Culture Adult (2) [facility] 10/20 09:24 Order name: PT-INR; Complete Time: 10:35 m 10/20 12:28 Order name: Urinalysis EDMS 10/20 12:28 Order name: Basic Metabolic Panel EDMS 10/20 12:28 Order name: Basic Metabolic Panel EDMS 10/20 12:28 Order name: Basic Metabolic Panel EDMS 10/20 12:28 Order name: Basic Metabolic Panel EDMS 10/20 12:28 Order name: CBC with Automated Diff EDMS 10/20 12:28 Order name: CBC with Automated Diff EDMS 10/20 09:16 Order name: XRAY Chest (1 view); Complete Time: 10:38 [facility] 10/20 10:10 Order name: CT Chest For PE Angio; Complete Time: 10:54 [facility] 10/20 10:10 Order name: CT Abd/Pelvis - IV Contrast Only; Complete Time: 10:57 [facility] 10/20 12:28 Order name: CBC with Automated Diff EDMS 10/20 12:28 Order name: CBC with Automated Diff EDMS 10/20 12:28 Order name: Lipid Profile EDMS 10/20 12:28 Order name: Lipid Profile EDMS 10/20 12:28 Order name: Magnesium EDMS 10/20 12:28 Order name: Magnesium EDMS 10/20 12:28 Order name: Phosphorus EDMS 10/20 12:28 Order name: Phosphorus EDMS 10/20 09:16 Order name: EKG; Complete Time: 09:16 m 10/20 09:16 Order name: Cardiac monitoring; Complete Time: 09:33 m 10/20 09:16 Order name: EKG - Nurse/Tech; Complete Time: 09:32 m 10/20 09:16 Order name: IV Saline Lock; Complete Time: 09:23 [facility] 10/20 09:16 Order name: Labs collected and sent; Complete Time: 09:23 [facility] 10/20 09:16 Order name: O2 Per Protocol; Complete Time: 09:23 [facility] 10/20 09:16 Order name: O2 Sat Monitoring; Complete Time: 09:23 [facility] 10/20 12:28 Order name: Heart Healthy EDMS EC:39 Rate is 124 beats/min. Rhythm is regular. WV interval is normal. QRS interval is jmm normal. QT interval is normal. T waves are Inverted in lead V1. No ST changes noted. Reviewed by me. Administered Medications: 09:30 Drug: SOLU-Medrol (methylPrednisoLONE) 125 mg Route: IVP; Site: right forearm; bp 09:30 Drug: Magnesium Sulfate 1 grams Route: IVPB; Infused Over: 1 hrs; Site: right forearm; bp 09:30 Drug: Xopenex (levalbuterol) (3) 1.25 mg Route: Inhalation; bp 09:30 Drug: Lactated Ringers Solution 1000 ml Route: IV; Rate: 1000 bolus; Site: right bp forearm; 10:05 Drug: morphine 2 mg Route: IVP; Infused Over: 4 mins; Site: right forearm; bp 10:05 Drug: Zofran (Ondansetron) 4 mg Route: IVP; Site: right forearm; bp Disposition: 18:01 Co-signature as Attending Physician, James Ba MD. rn Disposition Summary: 10/20/22 11:39 Hospitalization Ordered Hospitalization Status: Inpatient Admission [facility] Provider: Bryan Glaser Location: Telemetry/MedSurg (Inpatient) [facility] Condition: Stable [facility] Problem: an acute exacerbation jm Symptoms: have improved [facility] Bed/Room Type: Standard [facility] Room Assignment: 205(10/20/22 14:14) eb Diagnosis - COPD/ Chronic obstructive pulmonary disease with (acute) exacerbation [facility] Forms: - Medication Reconciliation Form [facility] - SBAR form [facility] Signatures: Dispatcher [employer] EDMaxime Canales PA PA jmm Nieto, Roman, MD MD rn Peltier, Brian RN RN Martha Zaidi Victoria, RN RN vg1 Corrections: (The following items were deleted from the chart) 14:14 11:39 [facility] eb
--- NOTE | 2022-10-20 12:19 | P.HP ---
Certification for Inpatient Patient admitted to: Inpatient With expected LOS: >2 Midnights Patient will require the following post-hospital care: None Practitioner: I am a practitioner with admitting privileges, knowledge of patient current condition, hospital course, and medical plan of care. Services: Services provided to patient in accordance with Admission requirements found in Title 42 Section 412.3 of the Code of Federal Regulations <Arjun Silva - Last Filed: 10/20/22 15:32> Patient History Date of Service: 10/20/22 Primary Care Provider: Nati Reason for admission: COPD exacerbation History of Present Illness: 67-year-old male with past medical history significant for COPD, BPH. Patient presents to the emergency room with complaints of shortness of breath chest pain cough and bloody stool. Patient stated that his symptoms started 3 days ago while walking. He developed shortness of breath with chest pain that radiated to his back and around his neck. He reported 9 out of 10 chest pain with tightness in severity. Patient stated he uses his inhaler and nebulizer treatment with no relief. He states that walking or any type of movement makes it worse and is alleviated by lying down. Patient also reported having a bloody stool today. He reports the stool was brown in color with streaks of blood. He denies any episodes of nausea vomiting, diarrhea or constipation. Patient was evaluated in the ER, with family members at the bedside. Patient appeared to be in no distress, physical exam was negative except for expiratory wheezing, and coughing. He received a breathing treatment with some steroids in the ER, patient stated he is feeling much better now. In the ER, his hemoglobin was stable at 16.7. Vital signs on admission were lactic of 2.4 , BP of 138/82 , pulse rate of 132 , respirations 28 , temperature of 100.2 and oxygen saturation of 98 % on nonrebreather. Patient received a liter of lactated Ringer's. All imaging were negative for any acute findings. Patient will be admitted under the care of Dr. Glaser. Pulmonology will be consulted, for further recommendations. Home medications list reviewed: Yes - Past Medical/Surgical History Diabetic: No -: COPD -: Bronchitis -: BPH -: Smoker -: Rectal bleed -: Kidney surgery right side. -: 3 Fingers placed back on patient - Family History Father -: Heart disease, Hypertension, Diabetes, Cancer, Liver disease, Kidney disease, Other (see notes) Notes: Patient states that his father had back problems. Father had prostate cancer. - Social History Smoking Status: Current every day smoker Smoking therapy provided: Yes Patient receptive to therapy: Yes Alcohol use: Yes CD- Drugs: No Caffeine use: Yes <Arjun Silva - Last Filed: 10/20/22 15:32> Date of Service: 10/20/22 <Bryan Glaser - Last Filed: 10/20/22 18:48> Allergies No Known Drug Allergies Allergy (Verified 10/28/14 09:06) Unknown Home Medications: Budesonide/Glycopyr/Formoterol [Breztri Aerosphere Inhaler] 2 puff BID 10/20/22 RX: Albuterol Inhaler [Ventolin Inhaler*] 2 puff Q4HR PRN 10/20/22 RX: Tamsulosin [Flomax*] 1 tab PO DAILY 10/20/22 predniSONE [Deltasone] 10 mg PO BID PRN 10/20/22 Review of Systems 10-point ROS is otherwise unremarkable General: Fever Respiratory: Cough, Shortness of Breath, SOB with Excertion Cardiovascular: Chest Pain <Arjun Silva - Last Filed: 10/20/22 15:32> Physical Examination - Vital Signs Temperature: 99.4 F Blood Pressure: 121/72 Pulse: 102 Respirations: 20 Pulse Ox (%): 97 - Physical Exam General: Alert, In no apparent distress, Oriented x3 HEENT: Atraumatic, Normocephalic, PERRLA Neck: Supple, 2+ carotid pulse no bruit Respiratory: Expiratory wheezes Cardiovascular: No edema, Normal pulses Capillary refill: <2 Seconds Gastrointestinal: Normal bowel sounds Musculoskeletal: No clubbing, No swelling Integumentary: No rashes, No breakdown Neurological: Normal speech, Normal strength at 5/5 x4 extr Lymphatics: No axilla or inguinal lymphadenopathy - Studies Laboratory Data (last 24 hrs) 10/20/22 10:22: PT 13.5 H, INR 1.23 10/20/22 09:22: WBC 9.00, Hgb 16.7, Hct 48.8, Plt Count 159 10/20/22 09:22: Sodium 132 L, Potassium 4.5, BUN 17, Creatinine 1.21, Glucose 108 H <Arjun Silva - Last Filed: 10/20/22 15:32> - Studies Laboratory Data (last 24 hrs) 10/20/22 10:22: PT 13.5 H, INR 1.23 10/20/22 09:22: WBC 9.00, Hgb 16.7, Hct 48.8, Plt Count 159 10/20/22 09:22: Sodium 132 L, Potassium 4.5, BUN 17, Creatinine 1.21, Glucose 108 H <Bryan Glaser - Last Filed: 10/20/22 18:48> Assessment and Plan - Plan Assessment Acute on chronic COPD exacerbation BPH History of smoking Rectal bleeding SIRS criteria Plan Acute on chronic COPD exacerbation Continue nebulizer treatment with steroids Oxygen therapy as needed Encouragement incentive spirometry/pulmonary toileting Chest x-ray negative for any acute findings except for emphysema Chest CTA negative for any acute findings Pulmonology consulted, recommendations appreciated BPH Continue home medication History of smoking Counseled on smoking cessation, patient receptive to teaching Continue nicotine patch Rectal bleeding No further episodes. Patient is stable Hemoglobin stable 16.[address] positive [address]aiac stool CT abdomen and pelvis-negative for any acute intra-abdominal findings Continue to monitor Patient with a history of paternal colon cancer, will benefit from outpatient GI consult SIRS criteria Temperature 100.2, pulse rate 132, respirations 28, lactic 2.4 Treated with 1 L of LR in ER Second lactic pending Fever resolved Continue to monitor PPX- SCDs Code Status- Full code Discharge Plan: Home Plan to discharge in: 48 Hours - Advance Directives Does patient have a Living Will: No Does patient have a Durable POA for Healthcare: No - Code Status/Comfort Care Code Status Assessed: Yes (Full code) Time Spent Managing Pts Care (In Minutes): 50 <Arjun Silva - Last Filed: 10/20/22 15:32> Physician Review: Patient Assessed, Agree with Above Assessment and Plan Physician Review Additional Text: Currently no evidence of infection to suggest sepsis. Continue methylprednisolone + Duo-Nebs. <Bryan Glaser - Last Filed: 10/20/22 18:48>
[2022-10-20] MEDS: ALBUTEROL 2.5 MG/3 ML NEB SOL NEB SCH ×2 (14:00→19:10)
[2022-10-20] MEDS: IPRATROPIUM BROM 0.5MG/2.5ML NEB SCH ×2 (14:00→19:10)
[2022-10-20] MEDS: METHYLPREDNISOLONE 40 MG INJ IV SCH ×2 (16:28→17:32)
[2022-10-20] MEDS: NICOTINE 14 MG/PAT TD SCH (16:28)
[2022-10-20] MEDS: ACETAMINOPHEN 500 MG TAB PO PRN (16:35)
[2022-10-20 16:49] VITALS: BMI 16.9
[2022-10-20 17:54] LABS: Arterial Blood Carboxyhemoglob 1.2 % (0-1.5); Blood Gas Oxyhemoglobin 91.5 % (94-97); Blood O2 Saturation 93.7 % (92-98.5)
[2022-10-21] MEDS: METHYLPREDNISOLONE 40 MG INJ IV SCH ×3 (00:18→16:45)
[2022-10-21] MEDS: ACETAMINOPHEN 500 MG TAB PO PRN ×2 (00:18→14:20)
[2022-10-21] MEDS: IPRATROPIUM BROM 0.5MG/2.5ML NEB SCH ×4 (01:05→19:15)
[2022-10-21] MEDS: ALBUTEROL 2.5 MG/3 ML NEB SOL NEB SCH ×4 (01:05→19:15)
[2022-10-21 06:39] LABS: Magnesium 2.4 mg/dL (1.6-2.4); Phosphorus 3.8 mg/dL (2.5-4.9); Potassium 4.5 mmol/L (3.5-5.1)
[2022-10-21] MEDS: NICOTINE 14 MG/PAT TD SCH (08:57)
[2022-10-21 11:59] LABS: Hematocrit 40.5 % (39.6-49.0)
--- NOTE | 2022-10-21 13:42 | P.PN ---
Subjective Date of Service: 10/21/22 Primary Care Provider: Nati Chief Complaint: COPD exacerbation No acute events overnight. He reports that his shortness of breath is improved compared to yesterday. No recurrent episodes of bleeding. This morning on rounds, he was still requiring 4 L nasal cannula. His SpO2 was 94 %. Review of Systems 10-point ROS is otherwise unremarkable Respiratory: Cough, Shortness of Breath, Wheezing Gastrointestinal: Hematochezia Physical Examination - Vital Signs Temperature: 97.9 F Blood Pressure: 117/70 Pulse: 85 Respirations: 18 Pulse Ox (%): 98 - Physical Exam General: Alert, In no apparent distress, Oriented x3 HEENT: Atraumatic, Mucous membr. moist/pink, EOMI, Sclerae nonicteric Neck: JVD not distended Respiratory: Expiratory wheezes Cardiovascular: No edema, Regular rate/rhythm, Normal S1 S2, No gallops, No rubs, No murmurs Gastrointestinal: Normal bowel sounds, Soft and benign, Non-distended, No tenderness, No rebound, No guarding Musculoskeletal: No clubbing Integumentary: No rashes Neurological: Normal speech, Cranial nerves 3-12 intact, Normal affect Assessment And Plan - Plan # Acute Chronic Obstructive Pulmonary Disease Exacerbation # SIRS Criteria (Tachypnea, Tachycardia) likely due to COPD Exacerbation - no current evidence of infection # Possible Type B Lactic Acidosis secondary to Albuterol Use - Evaluation thus far: - Physical exam = wheezing throughout - Chest x-ray = "emphysema without superimposed acute process identified" - CT chest angiogram = "negative for pulmonary embolism. Advanced emphysema." - Plan: - Consulted Pulmonary Medicine - recommendations appreciated - DuoNebs q6hr - Methylprednisolone 40 mg IV q8hr - Consulted Respiratory Therapy - Supplemental oxygen to maintain SpO2 > 92% - Incentive spirometry - Assess inhaler technique one improved from COPD exacerbation # Suspected Lower Gastrointestinal Bleed - possibly Diverticular Bleed Differential diagnoses include, but are not limited to, arteriovenous malformations, malignancy, diverticulosis, and hemorrhoidal. - Gastroenterology currently unavailable at our facility - States that he recently had colonoscopy with Dr. Canseco in mid-2021, and that it was positive only for diverticulosis - Spoke with Dr. Canseco - he recommended that we obtain serial H&H - if significant drop or hemodynamic instability, contact him for further recommendations - CT abdomen/pelvis = "no acute intra-abdominal or pelvic finding." - Type & Screen - q8hr H&H - Hgb: 16.7 -> 13.6 - Transfuse for Hgb < 7.0 - 2 large bore IVs - Continue pantoprazole # Tobacco Use Disorder - Nicotine patch ordered # Benign Prostatic Hyperplasia - Continue home medications once verified Bryan Glaser M.D.
[2022-10-21] MEDS ORDERED: SODIUM CHLORIDE 0.9% 10ML INJ IV PRN (15:27)
[2022-10-21] MEDS: PANTOPRAZOLE 40 MG INJ IVP SCH ×2 (16:45→20:49)
[2022-10-22] MEDS: ALBUTEROL 2.5 MG/3 ML NEB SOL NEB SCH ×2 (01:00→08:00)
[2022-10-22] MEDS: IPRATROPIUM BROM 0.5MG/2.5ML NEB SCH ×4 (01:00→19:20)
[2022-10-22] MEDS: METHYLPREDNISOLONE 40 MG INJ IV SCH ×3 (01:09→17:27)
[2022-10-22 04:20] LABS: Hematocrit 45.1 % (39.6-49.0)
[2022-10-22 04:33] LABS: Potassium 4.4 mmol/L (3.5-5.1)
[2022-10-22] MEDS: NICOTINE 14 MG/PAT TD SCH (08:45)
[2022-10-22] MEDS: PANTOPRAZOLE 40 MG INJ IVP SCH ×2 (08:45→19:53)
[2022-10-22] MEDS ORDERED: IPRATROPIUM BROM 0.5MG/2.5ML NEB PRN ×2 (12:32→14:00)
[2022-10-22] MEDS ORDERED: ALBUTEROL 2.5 MG/3 ML NEB SOL NEB PRN ×2 (12:32→14:00)
--- NOTE | 2022-10-22 12:36 | P.CNS ---
Date of Consult: 10/22/22 Primary Care Provider: Nati Chief Complaint: COPD exacerbation History of Present Illness: Patient is 67 years of age well-known to me with a history of severe COPD he was compliant with his therapy using Breztri and a rescue inhaler at home and then with worsening shortness of breath that started last Saturday to complain some blood in his stools currently he is still short of breath Allergies No Known Drug Allergies Allergy (Verified 10/28/14 09:06) Unknown Home Medications: Albuterol Inhaler [Ventolin Inhaler*] 2 puff Q4HR PRN 10/20/22 Budesonide/Glycopyr/Formoterol [Breztri Aerosphere Inhaler] 2 puff BID 10/20/22 Tamsulosin [Flomax*] 1 tab PO DAILY 10/20/22 predniSONE [Deltasone] 10 mg PO BID PRN 10/20/22 - Past Medical/Surgical History Diabetic: No -: Severe COPD -: Bronchitis -: BPH -: Smoker -: Rectal bleed -: Kidney surgery right side. -: 3 Fingers placed back on patient - Family History Father Medical History: Heart disease, Hypertension, Diabetes, Cancer, Liver disease, Kidney disease, Other (see notes) Notes: Patient states that his father had back problems. Father had prostate cancer. - Social History Smoking Status: Current every day smoker Alcohol use: Yes CD- Drugs: No Caffeine use: Yes Place of Residence: Home Review of Systems 10-point ROS is otherwise unremarkable General: Weakness Respiratory: Cough, Shortness of Breath Physical Examination Temp Pulse Resp BP Pulse Ox 97.9 F 85 14 141/81 H 99 10/22/22 12:00 10/22/22 12:00 10/22/22 12:00 10/22/22 12:00 10/22/22 12:00 General: Alert, Moderate distress Respiratory: Clear to auscultation bilaterally, Diminished Cardiovascular: No edema, Regular rate/rhythm, Normal S1 S2 Gastrointestinal: Normal bowel sounds, Soft and benign Musculoskeletal: No clubbing Neurological: Normal gait, Normal strength at 5/5 x4 extr - Problems (1) COPD exacerbation Onset Date: 10/28/14 Current Visit: No Status: Acute Plan: Patient is 67 years of age has severe COPD no evidence of pulmonary embolism admitted with an exacerbation still continues to smoke does use Breztri at home continue with nebs and bronchodilators he states not bleeding right now had a colonoscopy before oxygenation satisfactory CT scan shows severe emphysematous lung disease CT of the abdomen pelvis does not show any acute changes
[2022-10-22] MEDS: AMOX/K CLAV 875 MG TAB PO SCH ×2 (13:21→19:53)
[2022-10-22 14:12] LABS: Hematocrit 41.6 % (39.6-49.0)
--- NOTE | 2022-10-22 16:32 | EKG ---
Test Date: 2022-10-20 Test Time: 09:26:24 Water Hauler: NELLI MEASUREMENT RESULTS: Intervals: Rate: 124 VA: 130 QRSD: 64 QT: 290 QTc: 416 [place]: P: 89 VA: 130 QRS: 265 T: 78 INTERPRETIVE STATEMENTS: Sinus tachycardia with premature supraventricular complexes Biatrial enlargement Anterolateral infarct, age undetermined Abnormal ECG Compared to ECG 05/02/2022 11:36:26 Atrial premature complex(es) now present Atrial abnormality now present Sinus rhythm no longer present Fusion complex(es) no longer present Right-axis deviation no longer present Myocardial infarct finding still present Electronically Signed On 10-22-22 16:28:32 REGISTRY NP by Scottie Sifuentes
[2022-10-22] MEDS: ARFORMOTEROL TARTRATE 15 MCG/2 ML VIAL.NEB NEB SCH ×2 (18:53→19:20)
[2022-10-22] MEDS: ENSURE HIGH PROTEIN 237 ML CAN PO SCH (19:53)
[2022-10-22 21:21] LABS: Hematocrit 41.5 % (39.6-49.0)
[2022-10-23] MEDS: METHYLPREDNISOLONE 40 MG INJ IV SCH ×2 (00:13→08:14)
--- NOTE | 2022-10-23 06:26 | RAD REPORT ---
EXAM DESCRIPTION: Neri Single View10/23/2022 5:20 am CLINICAL HISTORY: Shortness of breath COMPARISON: October 20, 2022 FINDINGS: Marked COPD. The lungs appear clear of acute infiltrate. The heart is normal size IMPRESSION: One marked COPD without visualization of an acute abnormality
[2022-10-23 06:29] LABS: Absolute Lymphocytes (CBC) 0.6 K/uL (0.7-4.9); Hematocrit 43.7 % (39.6-49.0); Lymphocytes % 4.4 % (15.3-44.8); MPV 7.7 fL (7.6-11.3); RBC Red Blood Cell Count 4.91 M/uL (4.33-5.43)
[2022-10-23 06:51] LABS: Albumin 3.1 g/dL (3.4-5.0); Bilirubin Total 0.2 mg/dL (0.2-1.0); Magnesium 2.4 mg/dL (1.6-2.4); Potassium 4.6 mmol/L (3.5-5.1); Protein, Total 7.2 g/dL (6.4-8.2)
--- NOTE | 2022-10-23 06:57 | ECHO ---
HEIGHT: 5 ft 10 in WEIGHT: 118 lb 0 oz DATE OF STUDY: 10/22/[address]: Jeremiah Patel MD 2-DIMENSIONAL: YES M.MODE: YES DOPPLER: YES COLOR FLOW: YES TDS: PORTABLE: YES DEFINITY: BUBBLE STUDY: DIAGNOSIS: RESPIRATORY FAILURE CARDIAC HISTORY: CATHERIZATION: NO SURGERY: NO PROSTHETIC VALVE: NO PACEMAKER: NO MEASUREMENTS (cm) DIASTOLIC (NORMALS) SYSTOLIC (NORMALS) IVSd 0.8 (0.6-1.2) LA Diam 1.6 (1.9-4.0) LVEF 75% LVIDd 4.1 (3.5-5.7) LVIDs 2.3 (2.0-3.5) %FS 43% LVPWd 0.9 (0.6-1.2) Ao Diam 1.8 (2.0-3.7) 2 DIMENSIONAL ASSESSMENT: RIGHT ATRIUM: NORMAL LEFT ATRIUM: NORMAL RIGHT VENTRICLE: NORMAL LEFT VENTRICLE: NORMAL TRICUSPID VALVE: NORMAL MITRAL VALVE: NORMAL PULMONIC VALVE: NORMAL AORTIC VALVE: NORMAL PERICARDIAL EFFUSION: SMALL AORTIC ROOT: NORMAL LEFT VENTRICULAR WALL MOTION: HYPERDYNAMIC LEFT VENTRICLE DOPPLER/COLOR FLOW: NORMAL COMMENTS: 1. NORMAL LEFT VENTRICULAR EJECTION FRACTION GREATER THAN 65% WITH HYPERDYNAMIC LEFT VENTRICLE 2. SMALL PERICARDIAL EFFUSION 3. POOR WINDOWS TECHNOLOGIST: DEBBIE FLANAGAN
[2022-10-23] MEDS: AMOX/K CLAV 875 MG TAB PO SCH ×2 (08:14→19:46)
[2022-10-23] MEDS: NICOTINE 14 MG/PAT TD SCH (08:14)
[2022-10-23] MEDS: PANTOPRAZOLE 40 MG INJ IVP SCH ×2 (08:14→19:47)
[2022-10-23] MEDS: ENSURE HIGH PROTEIN 237 ML CAN PO SCH ×2 (08:18→22:54)
[2022-10-23] MEDS: ARFORMOTEROL TARTRATE 15 MCG/2 ML VIAL.NEB NEB SCH ×2 (08:45→20:45)
[2022-10-23] MEDS: IPRATROPIUM BROM 0.5MG/2.5ML NEB SCH ×2 (08:45→20:45)
--- NOTE | 2022-10-23 08:58 | P.PN ---
Date of Service: 10/22/22 Subjective Patient is feeling much better. However, he still gets short of breath from walking short distances. Otherwise, no new complaints. Some blood in his stool but H&H is stable-most likely hemorrhoidal bleeding-outpt GI follow-up requested Review of Systems 10-point ROS is otherwise unremarkable Physical Examination - Vital Signs reviewed - Physical Exam General: Alert, In no apparent distress, Oriented x3 Respiratory: minimal wheezing Cardiovascular: No edema, Regular rate/rhythm, Normal S1 S2, No gallops, No rubs, No murmurs Gastrointestinal: Normal bowel sounds, Soft and benign, Non-distended, No tenderness, No rebound, No guarding Musculoskeletal: No clubbing Neurological: No focal deficits Assessment And Plan - Plan # Acute Chronic Obstructive Pulmonary Disease Exacerbation # SIRS Criteria (Tachypnea, Tachycardia) likely due to COPD Exacerbation - no current evidence of infection # Possible Type B Lactic Acidosis # Suspected Lower Gastrointestinal Bleed - possibly Diverticular Bleed # Tobacco Use Disorder # Benign Prostatic Hyperplasia Plan: 1. Continue with albuterol and Atrovent nebs 2. Continue with IV steroids 3. Outpatient PFT 4. Pulmonary & GI follow-up 5. Room air O2 sats 6. Repeat chest x-ray 7. GI and DVT prophylaxis
[2022-10-23 10:46] LABS: Blood Morphology Comment NOT SEEN (NOT SEEN); Platelet Estimate ADEQ; White Blood Cell Scan OK (OK)
--- NOTE | 2022-10-23 11:56 | P.PN ---
Subjective Date of Service: 10/23/22 Primary Care Provider: Nati Chief Complaint: COPD exacerbation Subjective: Improving (Patient is improving still short of breath) Review of Systems General: Weakness Respiratory: Shortness of Breath Physical Examination - Vital Signs Temperature: 97.7 F Blood Pressure: 135/68 Pulse: 47 Respirations: 20 Pulse Ox (%): 99 - Physical Exam General: Alert, Oriented x3, Mild distress Respiratory: Diminished Cardiovascular: No edema, Regular rate/rhythm Gastrointestinal: Normal bowel sounds, Soft and benign Assessment And Plan - Current Problems (Diagnosis) (1) COPD exacerbation Onset Date: 10/28/14 Current Visit: No Status: Acute Plan: Patient admitted with COPD exacerbation he has severe COPD evaluate for home O2 discharge on Breztri and prednisone 10 mg twice a day normal left ventricular ejection fraction by echo chemistries reviewed Discharge Plan: Home Plan to discharge in: 24 Hours Physician Review: Patient Assessed, Agree with Above Assessment and Plan
[2022-10-23] MEDS: predniSONE 20 MG TAB PO SCH (19:47)
[2022-10-23] MEDS: ACETAMINOPHEN 500 MG TAB PO PRN (19:47)
[2022-10-24] MEDS: IPRATROPIUM BROM 0.5MG/2.5ML NEB SCH (07:57)
[2022-10-24] MEDS: ARFORMOTEROL TARTRATE 15 MCG/2 ML VIAL.NEB NEB SCH (07:57)
--- NOTE | 2022-10-24 08:11 | RAD REPORT ---
EXAM DESCRIPTION: US - Extrem Venous W Compress [place] - 10/24/2022 6:30 am CLINICAL HISTORY: DVT Bilateral leg edema and swelling. COMPARISON: No comparisons TECHNIQUE: Real-time sonographic interrogation of the left and right lower extremity deep venous sys tems was performed. FINDINGS: Normal compressibility, flow augmentation, phasic flow and spontaneous flow is identified in both the left and right lower extremity deep venous systems. IMPRESSION: No sonographic evidence of left or right lower extremity deep venous thrombosis.
[2022-10-24 08:28] LABS: Hematocrit 43.6 % (39.6-49.0); MCV 88.9 fL (80-100); MPV 7.1 fL (7.6-11.3); RBC Red Blood Cell Count 4.91 M/uL (4.33-5.43)
[2022-10-24 08:45] LABS: Blood Morphology Comment NOT SEEN (NOT SEEN); Platelet Estimate ADEQ; Troponin High Sensitivity 9.5 pg/mL (<58.9); White Blood Cell Scan OK (OK)
[2022-10-24 08:50] VITALS: O2SAT 98
[2022-10-24] MEDS: ENSURE HIGH PROTEIN 237 ML CAN PO SCH (09:00)
[2022-10-24] MEDS: PANTOPRAZOLE 40 MG INJ IVP SCH (09:08)
[2022-10-24] MEDS: AMOX/K CLAV 875 MG TAB PO SCH (09:08)
[2022-10-24] MEDS: NICOTINE 14 MG/PAT TD SCH (09:09)
[2022-10-24] MEDS: predniSONE 20 MG TAB PO SCH (09:09)
[2022-10-24 12:47] VITALS: BP 112/67; TEMP 97.9
--- NOTE | 2022-10-28 14:26 | EKG ---
Test Date: 2022-10-24 Test Time: 04:44:52 Porcelain Waxer: MARY MEASUREMENT RESULTS: Intervals: Rate: 59 VA: 126 QRSD: 76 QT: 384 QTc: 380 [place]: P: 91 VA: 126 QRS: 88 T: 76 INTERPRETIVE STATEMENTS: Sinus bradycardia Anteroseptal infarct, age undetermined Abnormal ECG Compared to ECG 10/20/2022 09:26:24 Sinus tachycardia no longer present Atrial premature complex(es) no longer present Atrial abnormality no longer present Myocardial infarct finding still present Electronically Signed On 10-28-22 14:23:23 NEEDLE MAKER by Leland Pierre
--- NOTE | 2022-10-29 17:40 | EKG ---
Test Date: 2022-10-24 Test Time: 06:43:13 Family Assistant: MARY MEASUREMENT RESULTS: Intervals: Rate: 63 VT: 130 QRSD: 74 QT: 380 QTc: 388 [place]: P: 88 VT: 130 QRS: 88 T: 78 INTERPRETIVE STATEMENTS: Normal sinus rhythm Anteroseptal infarct, age undetermined Abnormal ECG Compared to ECG 10/24/2022 04:44:52 Sinus bradycardia no longer present Myocardial infarct finding still present Electronically Signed On 10-29-22 17:34:46 WEATHERIZATION TECHNICIAN by Scottie Sifuentes
== END 2022-10-24 17:00 | disposition home health service (06) | DRG 191 ==
LOC: ER 08:58 → ERHOLD 12:20 → 2ND 16:00
PROVIDERS: ADMIT Internal Medicine; ATTEND Hospitalist
DX: J44.1 Chronic obstructive pulmonary disease with (acute) exacerbation (principal); K62.5 Hemorrhage of anus and rectum; R65.10 Systemic inflammatory response syndrome (SIRS) of non-infectious origin without acute organ dysfunction; N40.0 Benign prostatic hyperplasia without lower urinary tract symptoms; K21.9 Gastro-esophageal reflux disease without esophagitis; F17.210 Nicotine dependence, cigarettes, uncomplicated; Z79.52 Long term (current) use of systemic steroids; Z79.899 Other long term (current) drug therapy; Z20.822 Contact with and (suspected) exposure to COVID-19
CPT/HCPCS: 0240U; 36415; 71045; 71275; 74177; 80048; 80053; 82805; 83605; 83735; 83880; 84100; 84484; 85014; 85018; 85025; 85027; 85610; 86850; 86900; 86901; 87040; 93005; 93306; 93970; 94010; 96374; 96375; 99285; C9113; J2270; J2405; J2920; J2930; J3475; J7120; J7512; J7605; J7613; J7614; J7644; Q9967